=== PATIENT | female | born 1950 | race Caucasian/White ===

== ENCOUNTER 2022-04-29 14:59 | Inpatient (IN) | payer MEDICARE, SELFPAY ==
--- NOTE | ~2022-04-29 | XR_ITS ---
EXAMINATION: XR CHEST CLINICAL INFORMATION: Weight gain. COMPARISON: Chest x-ray 09/29/2014 TECHNIQUE: 2 views of the chest were obtained. FINDINGS: Small to moderate volume bilateral pleural effusions. There is mild central pulmonary vascular congestion. No pulmonary edema. Heart size is normal. Cardiac mediastinal contours normal. No focal consolidation. Pacemaker leads in right atrium and right ventricle. Multilevel degenerative spondylosis spine. XR/XR chest 2V IMPRESSION: Small to moderate bilateral pleural effusions. Mild central pulmonary vascular prominence without overt pulmonary edema.
[2022-04-29 15:14] VITALS: BP 131/64; PULSE 83; RESP 18; TEMP 36.6; O2SAT 94; BMI 38.2
--- NOTE | 2022-04-29 15:26 | ECG_ITS ---
Test Reason : sob Blood Pressure : / mmHG Vent. Rate : 084 BPM Atrial Rate : 084 BPM P-R Int : 304 ms QRS Dur : 132 ms QT Int : 414 ms P-R-T Axes : 039 103 -28 degrees QTc Int : 489 ms Ventricular-paced rhythm with Premature atrial complexes Abnormal ECG When compared with ECG of 24-JUL-2018 05:43, Ventricular-paced rhythm is now Present Referred By: Generic ED Physician Electronically Signed By:REESE FELIX
[2022-04-29 15:48] LABS: MANUAL DIFF FLAG NO
[2022-04-29 15:54] LABS: Basophils Percent Auto 0.3 % (0-2); Eosinophils Absolute Auto 0.1 X10*3/uL (0.0-0.4); Eosinophils Percent Auto 1.5 % (0-4); Hematocrit 39.8 % (37.0-47.0); Hemoglobin 13.3 g/dl (12.0-16.0); Imm Gran Abs Auto 0.02 X10*3/uL (0.00-0.03); Imm Gran Pct Auto 0.3 % (0.0-0.4); Lymphocytes Absolute Auto 1.5 X10*3/uL (1.2-4.9); Lymphocytes Percent Auto 20.3 % (20-40); Mean Corpuscular HGB Conc 33.4 g/dl (31.0-35.0); Mean Corpuscular Hemoglobin 32.2 pg (27.0-33.0); Mean Corpuscular Volume 96.4 fL (80.0-98.0); Mean Platelet Volume 11.2 fL (9.4-12.3); Monocytes Percent Auto 12.6 % (2-11); Neutrophils Absolute Auto 4.9 x10*3/uL (2.0-8.3); Platelet Count 155 X10*3/uL (160-400); Red Blood Count 4.13 X10*6/uL (4.20-5.50); Red Cell Distribution Width 12.5 % (11.0-16.0); White Blood Count 7.5 X10*3/uL (4.8-10.8)
[2022-04-29 16:05] LABS: COVID-19 Test Negative (Negative); IDNOW Serial# 16C4AD1C
--- NOTE | 2022-04-29 16:06 | ED.SOB ---
HPI - SOB/Dyspnea General Chief Complaint: Dyspnea Stated Complaint: ? CHF Time Seen by Provider: 04/29/22 15:44 Source: patient Mode of arrival: ambulatory Limitations: no limitations History of Present Illness HPI Narrative: 72-year-old female with past medical history of hypertension and edema presents for 7 days of shortness of breath on exertion, worsening over the past 3 days with a 5 lb weight gain over the past 4 days. She does have a history of edema, takes 12.5 mg of spironolactone daily, has never been diagnosed with heart failure. She did not report chest pain or pressure, palpitations, dizziness, weakness, lightheadedness, abdominal pain, abdominal distention, nausea, vomiting, fevers and chills. She denies cough, hemoptysis, and is not a smoker. MD elicited complaint: shortness of breath Onset (ago): day(s) (7) Timing: constant and progressively worsening Severity: moderate Exacerbating factors: exertion, movement and deep breaths Relieving factors: nothing Associated symptoms: denies other symptoms Treatment prior to arrival: none Related Data Home oxygen amount: none Home Medications Medication Instructions Recorded Confirmed Lactobacil.acidophilus-Bifido.animalis 1 cap PO DAILY 04/29/22 04/29/22 5 billion cell sprinkle capsule (Probiotic) cholecalciferol (vitamin D3) 25 25 mcg PO DAILY 04/29/22 04/29/22 mcg (1,000 unit) tablet metoprolol succinate 100 mg 1 tab PO DAILY 04/29/22 04/29/22 tablet,extended release 24 hr multivitamin 1 tab PO DAILY 04/29/22 04/29/22 omeprazole 40 mg capsule,delayed 1 cap PO DAILY 04/29/22 04/29/22 release spironolactone 25 mg tablet 0.5 tab PO DAILY 04/29/22 04/29/22 Allergies Allergy/AdvReac Type Severity Reaction Status Date / Time mushroom Allergy Severe ANAPHYLAXIS Verified 04/29/22 16:56 metronidazole [From FLAGYL] Allergy Mild NUMBNESS Verified 04/29/22 16:56 Penicillins [PCN] Allergy Mild RASH Verified 04/29/22 16:56 levofloxacin Allergy Unknown Unknown Verified 04/29/22 16:56 nitrofurantoin Allergy Unknown Unknown Verified 04/29/22 16:56 penicillin V Allergy Unknown Unknown Verified 04/29/22 16:56 propafenone Allergy Unknown Unknown Verified 04/29/22 16:56 Sulfa (Sulfonamide Allergy Unknown RASH Verified 04/29/22 16:56 Antibiotics) [SULFA (SULFONAMIDE ANTIBIOTICS)] ondansetron Allergy Unknown Verified 04/29/22 17:14 shellfish derived AdvReac Mild HEADACHES Verified 04/29/22 16:56 [SHELLFISH DERIVED] [place] mcr Allergy Unknown Unknown Uncoded 04/29/22 16:56 penicillin Allergy Unknown Unknown Uncoded 04/29/22 16:56 sulfa drugs Allergy Unknown Unknown Uncoded 04/29/22 16:56 Review of Systems Review of Systems: Constitutional: No Fever, No Chills, 5 lb weight gain in 4 days ENT/Mouth: No Ear Pain, No Hoarseness, No sore throat Eyes: No Eye Pain, No Swelling, No Redness, No Foreign Body Cardiovascular: No Chest Pain, positive SOB, positive bilateral lower extremity edema Respiratory: No Cough, positive Dyspnea on exertion Gastrointestinal: No Nausea, No Vomiting, No Diarrhea, No abdominal Pain Genitourinary: No Dysuria, No Hematuria Musculoskeletal: No joint pain, No Myalgias, No Joint Swelling Skin: No Skin lacerations, No rash Neuro: No Weakness, No Numbness, No Paresthesias, No Loss of Consciousness, No Dizziness, No Headache Psych: No Anxiety/Panic, No Depression Heme/Lymph: no easy bruising, no Lymphadenopathy Endocrine: No Polyuria, No Polydipsia Yes all other systems are reviewed and are negative PMFSH Past Medical History Attestation statement: The following information was validated with the patient. Source: old records reviewed Medical History (Updated 04/29/22 @ 17:47 by Román Conrad MD) GERD (gastroesophageal reflux disease) Hypertension Social History Social History Patient Tobacco Use Status: Never used Tobacco Use of substances other than those prescribed or required for medical reasons: No Advance Directives: No Advance Directives Information Provided: No Physical Exam Vital Signs: Vital Signs: Last Vital Signs Temp 97.9 F 04/29/22 15:14 Pulse 83 04/29/22 17:06 Resp 20 04/29/22 17:06 BP 129/69 04/29/22 17:06 Pulse Ox 91 L 04/29/22 17:06 O2 Del Method 04/29/22 17:06 BMI result Body Mass Index 38.2 Appearance: Alert. Oriented X3. No acute distress. Eyes: Pupils equal, round and reactive to light. ENT: Pharynx normal. Neck: Normal inspection. Neck supple. CVS: Normal heart rate and rhythm. Pulses normal. Respiratory: No respiratory distress. Faint crackles to bilateral bases otherwise clear with good air flow Abdomen: Soft and nontender. Skin: Skin warm and dry. Normal skin color. Normal skin turgor. Extremities: nonpitting bilateral lower extremity extremity edema. Gait well-balanced well coordinated Neuro: No motor deficit. No sensory deficit. Cranial nerves 2-12 intact Course Course Course Narrative: 72-year-old female presents for dyspnea on exertion, 5 lb weight gain in 4 days, and increase in edema to the bilateral lower extremities. Patient is on metoprolol for high blood pressure and spironolactone 12.5 mg for edema. Started spironolactone approximately year and half ago. No prior history of CHF, no prior echos available, no history of [place]. patient does not report chest pain or pressure on exertion just feels short of breath and fatigued easily. Labs drawn while patient was in the emergency department waiting room, CBC indicates a platelet count of 155. BUN of 19. Glucose 116, no diagnosis of diabetes in the past. Bilirubin 1.1, AST 43, troponin and BNPs are pending. 16:45 BNP 801, troponin 5.4, will start IV Lasix. Chest x-ray is pending. EKG indicates sinus rhythm with first-degree AV block with PACs, anterolateral infarct age undetermined with T-wave abnormality consider inferior ischemia. States this difficult changes with EKG from 07/24/2018. Will discuss this case with hospitalist. 17:[address] Conrad, plan of care is admit for new onset CHF. Patient verbalized understanding of and agrees with this plan. Consultations Consultation #1: Dr. Conrad Time: 17:06 MDM - SOB/Dyspnea Differential Diagnosis Differential diagnosis: Likely acute exacerbation of chronic obstructive airways disease, congestive heart failure and pneumonia Medical Records Attestation: I reviewed the patient's medical records. Lab Data Attestation: I reviewed the patient's lab results. Result diagrams: 04/29/22 15:42 04/29/22 15:42 Labs: Lab Results 04/29/22 04/29/22 04/29/22 Range/Units 15:32 15:42 15:42 WBC 7.5 (4.8-10.8) X10*3/uL RBC 4.13 L (4.20-5.50) X10*6/uL Hgb 13.3 (12.0-16.0) g/dl Hct 39.8 (37.0-47.0) % MCV 96.4 (80.0-98.0) fL MCH 32.2 (27.0-33.0) pg MCHC 33.4 (31.0-35.0) g/dl RDW 12.5 (11.0-16.0) % Plt Count 155 L (160-400) X10*3/uL MPV 11.2 (9.4-12.3) fL Immature Gran % (Auto) 0.3 (0.0-0.4) % Neut % (Auto) 65.0 (45-73) % Lymph % (Auto) 20.3 (20-40) % [place] % (Auto) 12.6 H (2-11) % Eos % (Auto) 1.5 (0-4) % Baso % (Auto) 0.3 (0-2) % Lymph # (Auto) 1.5 (1.2-4.9) X10*3/uL [place] # (Auto) 1.0 (0.1-1.2) X10*3/uL Eos # (Auto) 0.1 (0.0-0.4) X10*3/uL Baso # (Auto) 0.0 (0.0-0.2) X10*3/uL Abs Immat Gran (auto) 0.02 (0.00-0.03) X10*3/uL Absolute Neuts (auto) 4.9 (2.0-8.3) x10*3/uL Absolute Nucleated RBC 0.000 (0.0-0.012) X10*3/uL Nucleated RBC % (auto) 0.0 (0.0-0.2) /100WBC Sodium 143 (135-145) mmol/L Potassium 3.9 (3.3-5.1) mmol/L Chloride 108 (96-108) mmol/L Carbon Dioxide 23 (22-29) mmol/L Anion Gap 16 (12-20) BUN 19 H (9-16) mg/dL Creatinine 0.90 (0.5-1.4) mg/dL Estim Creat Clear Calc 58.8 Estimated GFR > 60 Random Glucose 116 H (60-115) mg/dL Calcium 9.2 (8.4-10.2) mg/dL Total Bilirubin 1.1 H (0.0-1.0) mg/dL AST 28 (5-31) U/L ALT 43 H (0-31) U/L Alkaline Phosphatase 92 (39-117) U/L Troponin I High Sens (<3.5-17.0) ng/L B-Natriuretic Peptide (<100) pg/mL Total Protein 5.9 L (6.5-8.0) g/dL Albumin 3.8 (3.5-5.0) g/dL COVID-19 (LUCIUS) Negative (Negative) COVID-19 Clin Com See Note 04/29/22 04/29/22 04/29/22 Range/Units 15:42 15:42 17:03 WBC (4.8-10.8) X10*3/uL RBC (4.20-5.50) X10*6/uL Hgb (12.0-16.0) g/dl Hct (37.0-47.0) % MCV (80.0-98.0) fL MCH (27.0-33.0) pg MCHC (31.0-35.0) g/dl RDW (11.0-16.0) % Plt Count (160-400) X10*3/uL MPV (9.4-12.3) fL Immature Gran % (Auto) (0.0-0.4) % Neut % (Auto) (45-73) % Lymph % (Auto) (20-40) % [place] % (Auto) (2-11) % Eos % (Auto) (0-4) % Baso % (Auto) (0-2) % Lymph # (Auto) (1.2-4.9) X10*3/uL [place] # (Auto) (0.1-1.2) X10*3/uL Eos # (Auto) (0.0-0.4) X10*3/uL Baso # (Auto) (0.0-0.2) X10*3/uL Abs Immat Gran (auto) (0.00-0.03) X10*3/uL Absolute Neuts (auto) (2.0-8.3) x10*3/uL Absolute Nucleated RBC (0.0-0.012) X10*3/uL Nucleated RBC % (auto) (0.0-0.2) /100WBC Sodium (135-145) mmol/L Potassium (3.3-5.1) mmol/L Chloride (96-108) mmol/L Carbon Dioxide (22-29) mmol/L Anion Gap (12-20) BUN (9-16) mg/dL Creatinine (0.5-1.4) mg/dL Estim Creat Clear Calc Estimated GFR Random Glucose (60-115) mg/dL Calcium (8.4-10.2) mg/dL Total Bilirubin (0.0-1.0) mg/dL AST (5-31) U/L ALT (0-31) U/L Alkaline Phosphatase (39-117) U/L Troponin I High Sens 5.4 5.9 (<3.5-17.0) ng/L B-Natriuretic Peptide 801 H (<100) pg/mL Total Protein (6.5-8.0) g/dL Albumin (3.5-5.0) g/dL COVID-19 (LUCIUS) (Negative) COVID-19 Clin Com Imaging Data Chest x-ray: Attestation: I personally reviewed and interpreted this imaging study as follows: Radiologist's impression: EXAMINATION: XR CHEST CLINICAL INFORMATION: Weight gain. COMPARISON: Chest x-ray 09/29/2014 TECHNIQUE: 2 views of the chest were obtained. FINDINGS: Small to moderate volume bilateral pleural effusions. There is mild central pulmonary vascular congestion. No pulmonary edema. Heart size is normal. Cardiac mediastinal contours normal. No focal consolidation. Pacemaker leads in right atrium and right ventricle. Multilevel degenerative spondylosis spine. XR/XR chest 2V IMPRESSION: Small to moderate bilateral pleural effusions. Mild central pulmonary vascular prominence without overt pulmonary edema. ECG Data Attestation: I personally reviewed and interpreted this ECG as follows: ECG interpretation date: 04/29/22 ECG interpretation time: 15:26 Prior ECG tracings: available for review Interpretation: Vent. rate 84 BPM MT interval 304 ms QRS duration 132 ms QT/QTc 414/489 ms P-R-T axes 39 103 -28 Sinus rhythm with 1st degree A-V block with Premature atrial complexes Non-specific intra-ventricular conduction block Anterolateral infarct , age undetermined T wave abnormality, consider inferior ischemia Abnormal ECG When compared with ECG of 24-JUL-2018 05:43, Significant changes have occurred
[2022-04-29 16:16] LABS: Alanine Aminotransferase 43 U/L (0-31); Albumin Level 3.8 g/dL (3.5-5.0); Alkaline Phosphatase 92 U/L (39-117); Anion Gap 16 (12-20); Aspartate Amino Transferase 28 U/L (5-31); Bilirubin Total 1.1 mg/dL (0.0-1.0); Blood Urea Nitrogen 19 mg/dL (9-16); Calcium 9.2 mg/dL (8.4-10.2); Carbon Dioxide 23 mmol/L (22-29); Chloride 108 mmol/L (96-108); Creatinine Clr Calc Pharmacy 58.8; Estimated Glomerular Filt Rate > 60; Glucose Random 116 mg/dL (60-115); Potassium 3.9 mmol/L (3.3-5.1); Sodium 143 mmol/L (135-145); Total Protein 5.9 g/dL (6.5-8.0)
[2022-04-29 16:20] LABS: Troponin-I High Sensitivity 5.4 ng/L (<3.5-17.0)
[2022-04-29 16:23] LABS: B Type Natriuretic Peptide 801 pg/mL (<100)
[2022-04-29 17:06] VITALS: BP 129/69; PULSE 83; RESP 20; O2SAT 91
[2022-04-29] MEDS: Furosemide 40 MG/4 ML VIAL IVPUSH (17:08)
--- NOTE | 2022-04-29 17:17 | PHA.MEDREC ---
Pharmacy Consult ? Medication Reconciliation Pharmacy has completed the medication reconciliation. Nurse confirmed medications
[2022-04-29 17:29] LABS: Troponin-I High Sensitivity 5.9 ng/L (<3.5-17.0)
[2022-04-29 17:39] LABS: Thyroid Stimulating Hormone 1.54 uIU/mL (0.32-4.0)
--- NOTE | 2022-04-29 17:45 | P.HPHOSP_ITS ---
History of Present Illness Date of Service: 04/29/22 Chief Complaint: Dyspnea a 72 years old lady with PMH of HTN, tachycardia post ppm, GERD who presents to the hospital with a complaint of worsening dyspnea for the the last week. The patient reports that she started noticing dyspnea over the last few weeks but get worse over the last week with associated with weight gain and having some edema in her lower extremities. She denies any chest pain, palpitation, headache, double vision, change in bowel habit, nausea or vomiting or urinary symptoms. She cannot recall any episodes of chest pain over the last few weeks or any episode of chest heaviness. In the emergency she was found to have elevated BNP with chest x-ray suggestive of fluid overload. EKG showed first-degree AV block with PACs. Nonspecific T-wave changes. Admitted for further evaluation and treatment. Review of Systems Review of Systems: No fever, chills or weakness No chest pain, palpitation Dyspnea on exertion, no cough or chest pain No abdominal pain, nausea or vomiting No urinary symptoms No any rash or wounds PMFSH Medical History (Updated 04/29/22 @ 17:47 by Román Conrad MD) GERD (gastroesophageal reflux disease) Hypertension Social History Patient Tobacco Use Status: Never used Tobacco Use of substances other than those prescribed or required for medical reasons: No Advance Directives: No Advance Directives Information Provided: No Meds Allergies Allergy/AdvReac Type Severity Reaction Status Date / Time mushroom Allergy Severe ANAPHYLAXIS Verified 04/29/22 16:56 metronidazole [From FLAGYL] Allergy Mild NUMBNESS Verified 04/29/22 16:56 Penicillins [PCN] Allergy Mild RASH Verified 04/29/22 16:56 levofloxacin Allergy Unknown Unknown Verified 04/29/22 16:56 nitrofurantoin Allergy Unknown Unknown Verified 04/29/22 16:56 penicillin V Allergy Unknown Unknown Verified 04/29/22 16:56 propafenone Allergy Unknown Unknown Verified 04/29/22 16:56 Sulfa (Sulfonamide Allergy Unknown RASH Verified 04/29/22 16:56 Antibiotics) [SULFA (SULFONAMIDE ANTIBIOTICS)] ondansetron Allergy Unknown Verified 04/29/22 17:14 shellfish derived AdvReac Mild HEADACHES Verified 04/29/22 16:56 [SHELLFISH DERIVED] [place] mcr Allergy Unknown Unknown Uncoded 04/29/22 16:56 penicillin Allergy Unknown Unknown Uncoded 04/29/22 16:56 sulfa drugs Allergy Unknown Unknown Uncoded 04/29/22 16:56 Active Medications: Current Medications Acetaminophen (Acetaminophen 325 Mg Tablet) 650 mg PO Q6H PRN PRN Reason: Pain, Mild (Pain Scale 1-3) Enoxaparin Sodium (Enoxaparin Sodium 40 Mg/0.4 Ml Syringe) 40 mg SUBCUT Q24H [facility] Furosemide (Furosemide 40 Mg/4 Ml Vial) 40 mg IVPUSH DAILY [facility]; Protocol Metoprolol Succinate (Metoprolol Succinate Er 100 Mg Tab.Er.24h) 100 mg PO DAILY [facility]; Protocol Multivitamins/Vitamin C (Multivitamin Tablet) 1 tab PO DAILY [facility] Omeprazole (Omeprazole 40 Mg Capsule.Dr) 40 mg PO DAILY@0630 [facility] Ondansetron HCl (Ondansetron Hcl 4 Mg/2 Ml Vial) 4 mg IVPUSH Q8H PRN PRN Reason: Nausea and Vomiting Sodium Chloride (0.9 % Sodium Chloride Flush 3 Ml Syringe) 3 ml IVFLUSH QSHIFT [facility] Spironolactone (Spironolactone 25 Mg Tablet) 12.5 mg PO DAILY [facility]; Protocol Vitamin D (Cholecalciferol (Vitamin D3) 25 Mcg Tablet) 25 mcg PO DAILY [facility] Home Medications Medication Instructions Recorded Confirmed Last Taken Type Lactobacil.acidophilus-Bifido.animalis 1 cap PO DAILY 04/29/22 04/29/22 Unknown History 5 billion cell sprinkle capsule (Probiotic) cholecalciferol (vitamin D3) 25 25 mcg PO DAILY 04/29/22 04/29/22 Unknown History mcg (1,000 unit) tablet metoprolol succinate 100 mg 1 tab PO DAILY 04/29/22 04/29/22 04/29/22 09:00 History tablet,extended release 24 hr multivitamin 1 tab PO DAILY 04/29/22 04/29/22 Unknown History omeprazole 40 mg capsule,delayed 1 cap PO DAILY 04/29/22 04/29/22 04/29/22 09:00 History release spironolactone 25 mg tablet 0.5 tab PO DAILY 04/29/22 04/29/22 04/29/22 09:00 History Physical Exam Vital Signs and Narrative: Vital Signs: Last Vital Signs Temp 97.9 F 04/29/22 15:14 Pulse 83 04/29/22 17:06 Resp 20 04/29/22 17:06 BP 129/69 04/29/22 17:06 Pulse Ox 91 L 04/29/22 17:06 O2 Del Method 04/29/22 17:06 BMI result Body Mass Index 38.2 Const: Other: Constitutional : Alert, oriented, not in distress Neck : Normal inspection, Supple Cardiovascular : RRR, no JVP, +1 lower extremity edema Respiratory : decreased air entry at the bases of the lungs, dullness on percussion bilateral bases, basal fine crackles, no wheezes or rhonchi Gastrointestinal: soft, lax, Normal bowel sounds, Non tender Skin : Warm, Dry Neurological : Alert & oriented x3, No focal deficit , CN 2-12 within normal Results Labs CBC and Chem 7: 04/29/22 15:42 04/29/22 15:42 Labs: Laboratory Results - last 24 hr 04/29/22 04/29/22 04/29/22 15:32 15:42 15:42 MCV 96.4 MCH 32.2 MCHC 33.4 RDW 12.5 Plt Count 155 L MPV 11.2 Immature Gran % (Auto) 0.3 Neut % (Auto) 65.0 Lymph % (Auto) 20.3 [place] % (Auto) 12.6 H Eos % (Auto) 1.5 Baso % (Auto) 0.3 Lymph # (Auto) 1.5 [place] # (Auto) 1.0 Eos # (Auto) 0.1 Baso # (Auto) 0.0 Abs Immat Gran (auto) 0.02 Absolute Neuts (auto) 4.9 Absolute Nucleated RBC 0.000 Nucleated RBC % (auto) 0.0 Anion Gap 16 Estim Creat Clear Calc 58.8 Estimated GFR > 60 Random Glucose 116 H Calcium 9.2 Total Bilirubin 1.1 H AST 28 ALT 43 H Alkaline Phosphatase 92 B-Natriuretic Peptide Total Protein 5.9 L Albumin 3.8 TSH 1.54 COVID-19 ([facility]) Negative COVID-19 Clin Com See Note 04/29/22 15:42 MCV MCH MCHC RDW Plt Count MPV Immature Gran % (Auto) Neut % (Auto) Lymph % (Auto) [place] % (Auto) Eos % (Auto) Baso % (Auto) Lymph # (Auto) [place] # (Auto) Eos # (Auto) Baso # (Auto) Abs Immat Gran (auto) Absolute Neuts (auto) Absolute Nucleated RBC Nucleated RBC % (auto) Anion Gap Estim Creat Clear Calc Estimated GFR Random Glucose Calcium Total Bilirubin AST ALT Alkaline Phosphatase B-Natriuretic Peptide 801 H Total Protein Albumin TSH COVID-19 ([facility]CIUS) COVID-19 Clin Com Imaging Radiologist's Impressions: Impressions Chest X-Ray 04/29/22 16:28 IMPRESSION: Small to moderate bilateral pleural effusions. Mild central pulmonary vascular prominence without overt pulmonary edema. Assessment and Plan (1) New onset of congestive heart failure: Status: Acute Plan a 72 years old lady with PMH of HTN, tachycardia post ppm, GERD who presents to the hospital with a complaint of worsening dyspnea for the the last week. acute congestive heart failure Unclear underlying etiology, could be coronary Nonspecific T-wave changes, no ST changes suggest ACS Get an echo Start IV Lasix Monitor intake and output Get cardiology evaluation Keep on telemetry Hypertension continue metoprolol and spironolactone GERD continue omeprazole DVT PPX Lovenox The patient will need 2. Overnight hospital stay for evaluation of acute congestive heart failure to prevent possible decompensation in to hypoxic Respiratory failure. Quality Stroke Does the patient have a stroke diagnosis?: No VTE Prior VTE?: No VTE Risk Level:: Medical - moderate - high VTE Device Contraindication: Treatment Not Indicated VTE Drug Contraindication: N/A - Med Ordered
[2022-04-29 18:04] VITALS: BP 130/61; PULSE 77; RESP 20; TEMP 36.7; O2SAT 93
--- NOTE | 2022-04-29 19:30 | MHC.CM.PN ---
IMM 04/26. HCP reviewed, completed and signed. Copies given. uploaded into [facility] and [facility] Expanse. HCP/ Jimmy Nieto ([phone]). No DME/services. Has hearing aides and pacemaker. Moderna x2, boosted x2. Lives with . Is independent. D/C plan: Home without services. to transport home. CM to follow for d/c needs.
[2022-04-29 20:04] VITALS: BP 122/59; PULSE 68; RESP 22; O2SAT 93
--- NOTE | 2022-04-29 20:07 | PC.NURSE ---
Assumed care of pt at 1999.
--- NOTE | 2022-04-29 20:14 | PC.NURSE ---
Attempt to call report to [facility]
--- NOTE | 2022-04-29 20:38 | PC.NURSE ---
Attempted to call [facility] to give report, no answer once transferred.
--- NOTE | 2022-04-29 20:52 | PC.NURSE ---
Gave report to SAWYER Grande in [facility]. Pt going to [facility] [phone].
[2022-04-29 21:40] VITALS: BP 124/67; PULSE 75; RESP 20; TEMP 37.4; O2SAT 94
[2022-04-29 22:16] VITALS: BMI 36.9
[2022-04-29] MEDS: 0.9 % Sodium Chloride Flush 3 ML SYRINGE IVFLUSH (22:25)
[2022-04-29 23:49] VITALS: BP 136/64; PULSE 78; RESP 18; TEMP 36.3; O2SAT 92
--- NOTE | 2022-04-30 01:02 | PC.NURSE ---
Telemetry SR with 1st degree AVB. Pacer appears to be inappropriately pacing-Dr Lepe notified.
--- NOTE | 2022-04-30 02:01 | PC.NURSE ---
Pt had run of 18 beats VT. Asymptomatic. Dr notified and ordered labs. Will continue to monitor.
[2022-04-30 02:47] LABS: Anion Gap 18 (12-20); Blood Urea Nitrogen 18 mg/dL (9-16); Calcium 9.3 mg/dL (8.4-10.2); Carbon Dioxide 24 mmol/L (22-29); Chloride 104 mmol/L (96-108); Creatinine Clr Calc Pharmacy 67.5; Estimated Glomerular Filt Rate > 60; Glucose Random 92 mg/dL (60-115); Magnesium 1.8 mg/dL (1.6-2.6); Potassium 3.6 mmol/L (3.3-5.1); Sodium 142 mmol/L (135-145)
[2022-04-30 03:10] VITALS: BP 123/55; PULSE 75; RESP 18; TEMP 36.5; O2SAT 93
--- NOTE | 2022-04-30 04:48 | PC.NURSE ---
Pt went into NSR for a short period of time then went back to SR w/1st degree avb. Pt sleeping comfortably. Will pass along in report in am and will continue to monitor.
[2022-04-30] MEDS: Omeprazole 40 MG CAPSULE.DR PO (05:55)
[2022-04-30 06:30] LABS: Hematocrit 38.8 % (37.0-47.0); Hemoglobin 13.2 g/dl (12.0-16.0); Mean Corpuscular Hemoglobin 32.6 pg (27.0-33.0); Mean Corpuscular Volume 95.8 fL (80.0-98.0); Mean Platelet Volume 10.9 fL (9.4-12.3); Platelet Count 155 X10*3/uL (160-400); Red Blood Count 4.05 X10*6/uL (4.20-5.50); Red Cell Distribution Width 12.2 % (11.0-16.0)
[2022-04-30 06:46] LABS: Anion Gap 17 (12-20); Blood Urea Nitrogen 19 mg/dL (9-16); Calcium 9.1 mg/dL (8.4-10.2); Carbon Dioxide 25 mmol/L (22-29); Chloride 105 mmol/L (96-108); Creatinine Clr Calc Pharmacy 70.2; Estimated Glomerular Filt Rate > 60; Glucose Random 84 mg/dL (60-115); Potassium 3.7 mmol/L (3.3-5.1); Sodium 143 mmol/L (135-145)
--- NOTE | 2022-04-30 07:00 | CA_ITS ---
Transthoracic Echocardiogram Patient (Last, First, Middle): Maria G Nieto A Gender: Female Date of : 1950 Age: 72 Procedure Date: 04/30/2022 Procedure Type: Transthoracic Echocardiogram [place] [facility] [place]: 157.48 cm Weight: 91.17 kg BSA: 1.92 m2 Heart Rate: 70 bpm BP: 123 / 55 mmHg Back Wedger: JOSE LUIS York MD: Román Conrad MD Manager Ob: Matt Pompa MD Symptoms: new onset CHF Study Quality: Adequate ECG Rhythm: Sinus with V-paced rhythm Conclusions: - 1. Low normal LV systolic function with LVEF of 50-55% with impaired relaxation filling pattern 2. [id number] mitral regurgitation 3. Normal RV systolic pressure 4. No gross pericardial effusion Findings Left Ventricle Normal left ventricular cavity size. There is normal left ventricular wall thickness. The left ventricular systolic function is low normal. The visually estimated ejection fraction is between 50-55%. There is paradoxical septal motion consistent with a right ventricular pacemaker. Spectral Doppler is indicative of an impaired relaxation filling pattern. Peak GLS is 15.6%, which is reduced. Right Ventricle Normal right ventricular cavity size. There is normal right ventricular systolic function. There is a pacemaker wire seen in the right ventricle. Atria The left atrium is likely dilated. Interatrial shunt cannot be excluded. The right atrium is normal in size. A pacemaker wire is identified in the right atrium. Aortic Valve Normal aortic valve structure and function. There is no aortic valve stenosis. There is no aortic valve regurgitation. Mitral Valve There is mild anterior and posterior mitral leaflet thickening. There is mild to moderate mitral valve regurgitation. There is no mitral valve stenosis. Pulmonic Valve The pulmonic valve is likely normal. Tricuspid Valve Likely normal tricuspid valve structure and function. There is mild tricuspid valve regurgitation. The right ventricular systolic pressure is normal. The right ventricular systolic pressure is 28 mmHg. Normal right atrial pressure. There is no evidence of pulmonary hypertension. Great Vessels All visible segments of the aorta are normal in size. The pulmonary artery was not well visualized. Venous The inferior vena cava is normal in size and collapses greater than 50% with inspiration. Pericardium/Pleural There is no evidence of pericardial effusion. Prior Study Comparison No prior study available for comparison. Measurements 2D Linear Measurements IVSd: 0.97 0.6-0.9/0.6-1.0 cm LVIDd: 4.53 3.9-5.3/4.2-5.9 cm LVIDd Index: 2.36 2.4-3.2/2.2-3.1 cm/m2 LVIDs: 3.10 2.0-3.6 cm LVPWd: 0.92 0.7-1.1 cm LA Diam: 3.70 2.7-3.8/3.0-4.0 cm LAIDs Index: 1.93 1.5-2.3 cm/m2 LV Mass: 178.39 67-162/88-224 g LV Mass Index: 92.91 43-95/49-115 g/m2 LVOT Diam: 1.90 3.0+(-)1.3 cm 2D Systolic Function EF 4C: 52.30 >55% EF 2C: 49.90 >55% EF BiP: 51.50 >55% Mitral Valve MV Pk E: 0.94 MV PK A: 0.89 MV Decel Time: 216.00 E/A: 1.10 E'Lateral: 8.16 E'Medial: 4.13 E/E' Med: 22.70 E/E' Lat: 11.50 PHT: 63.00 MVA PHT: 3.49 Decel [place]: 4.35 Aortic Valve AoV Pk Tony: 1.35 AoV Mn Tony: 0.97 AoV VTI: 0.30 AoV Pk Grad: 7.00 Aov Mn Grad: 4.00 ANTELMO Cont.VTI: 1.90 LVOT LVOT Pk Tony: 0.89 LVOT Mn Tony: 0.63 LVOT VTI: 0.20 LVOT Pk Grad: 3.00 LVOT Mn Grad: 2.00 LVOT Diam: 1.90 LVOT Area: 2.84 Diastolic Function MV Pk E: 0.94 MV Pk A: 0.89 E/A: 1.10 E'Medial: 4.13 E/E' Med: 22.70 E' Laterial: 8.16 E/E' Lat: 11.50 Right Ventricle TAPSE (mm): 20.40 TVS' Tony: 11.30 Tricuspid Valve TR Pk Tony: 2.50 TR Pk Grad: 25.00 RA Press: 3.00 RVSP: 28.00 Great Vessels Aorta Sinus of Valsalva: 2.70 2.0-3.5 cm Ao Asc: 3.30 2.1-3.4 cm Pulmonary Veins Pulm Vein S/D 0.80 Pulmonary Valve PV Pk Tony: 1.02 Peak PV Grad: 4.00 Updated in Other Vendor System with Status of Final Matt Pompa MD electronically signed on 04/30/2022 12:51:38 PM with status of Final
[2022-04-30 07:30] VITALS: BP 128/60; PULSE 72; RESP 20; TEMP 36.4; O2SAT 91
[2022-04-30] MEDS: Furosemide 40 MG/4 ML VIAL IVPUSH (07:57)
[2022-04-30] MEDS: Cholecalciferol (Vitamin D3) 25 MCG TABLET PO (07:58)
[2022-04-30] MEDS: Metoprolol Succinate ER 100 MG TAB.ER.24H PO (07:58)
[2022-04-30] MEDS: Multivitamin TABLET 1 TAB PO (07:58)
[2022-04-30] MEDS: Spironolactone 25 MG TABLET 12.5 MG PO (07:58)
[2022-04-30] MEDS: 0.9 % Sodium Chloride Flush 3 ML SYRINGE IVFLUSH ×3 (08:01→20:29)
--- NOTE | 2022-04-30 09:45 | P.CONCA_ITS ---
History of Present Illness History of Present Illness Date of Service: 04/30/22 Requesting physician: Román Conrad Consult reason: congestive heart failure Chief complaint: Dyspnea Narrative: I was consulted to see Maria G in cardiology consultation today for new onset congestive heart failure. She is a pleasant 72-year-old woman with prior history of [employer] dual-chamber pacer placement in 2013 for what she says is tachycardia which is unusual, hypertension, no history of congestive heart failure coronary artery disease or vascular event. Patient generally is doing well overall with her overall has status and says sees Dr. Daniel and his staff in [place] and has regular checks with her pacemaker every year. She had last echocardiogram 2018. She said for about a week she started getting increasing shortness of breath and over the last 2 days the shortness of breath progressed with minimal exertion and then on Friday night she got symptoms of orthopnea and could lay flat and had cough. She thought she had bronchitis. Friday she continued to get worse with her shortness of breath and on Friday morning she called her primary care physician. She also had associated sudden weight gain of about 5 lb and some lower extremity edema. She was advised to come to the emergency room and came to [facility] yesterday and was noted to be in heart failure with BNP in 800 range and chest x-ray consistent with congestive heart failure. EKG shows normal sinus rhythm with prolonged AV interval with ventricularly paced rhythm with PVCs. She said she in the past has been told that she does not utilize a pacemaker much. She did not have any ischemic symptoms of chest discomfort. She denies any recent symptoms of upper respiratory or viral illness. She denies any symptoms of palpitations, irregular heartbeat, lightheadedness, syncope. She denies any dietary indiscretion. Review of Systems Constitutional: Constitutional: Reports weight gain (Rapid in 1 day, 5 lb) Eyes: Eyes: Reports no additional eye complaints ENT: Reports system reviewed and no additional complaints, except as documented Cardiovascular: Cardiovascular: Denies chest pain, Denies chest pain with activity, Reports leg edema, Denies lightheadedness, Denies Loss of Conscious ness, Denies palpitations, Reports dyspnea on exertion and Reports orthopnea Respiratory: Respiratory: Reports cough and Reports dyspnea on exertion Gastrointestinal: Gastrointestinal: Reports no additional gastrointestinal complaints Genitourinary: Genitourinary: Reports no additional female genitourinary complaints Musculoskeletal: Musculoskeletal: Reports no additional musculoskeletal complaints Integumentary/Breasts: Skin/Breast: Reports system reviewed and no additional complaints, except as docu Neurologic: Reports system reviewed and no additional complaints, except as documented Psychiatric: Psychiatric: Reports no additional psychiatric complaints Endocrine: Endocrine: Reports no additional endocrine complaints and Denies palpitations Hematologic/Lymphatic: Hematologic/Lymphatic: Reports no additional hematologic/lymphatic complaints Allergic/Immunologic: Allergic/Immunologic: Reports no additional allergic/immunologic complaints [facility] Past Medical History Medical History Cardiac pacemaker in situ GERD (gastroesophageal reflux disease) Hypertension Social History Social History Household Members: Spouse Housing: House Do you presently have visiting nurse or other home services: No Patient Tobacco Use Status: Never used Tobacco Use of substances other than those prescribed or required for medical reasons: No Currently Displaying Signs/Symptoms of Drug Intoxication Withdrawal: No Any prior treatment program specific to substance use: No Have you been hit, kicked, punched, or otherwise hurt by someone within the past year? If so, by whom?: No Do you feel safe in your current relationship?: No Is there a partner from a previous relationship who is making you feel unsafe now?: No Are you made to feel afraid or neglected: No Advance Directives: No Advance Directives Information Provided: No Do you have thoughts of harming others: None Do you have a plan to hurt others: No Plan Recently lost weight without trying: No How much weight loss: Not applicable Eating poorly because of decreased appetite: No Nutrition screen score: 0 Nutrition Risks: No Nutritional Risk Patient : No : No Poor oral hygiene: No service: No Current occupational status: retired Meds Allergies Allergy/AdvReac Type Severity Reaction Status Date / Time mushroom Allergy Severe ANAPHYLAXIS Verified 04/29/22 16:56 metronidazole [From FLAGYL] Allergy Mild NUMBNESS Verified 04/29/22 16:56 Penicillins [PCN] Allergy Mild RASH Verified 04/29/22 16:56 levofloxacin Allergy Unknown Unknown Verified 04/29/22 16:56 nitrofurantoin Allergy Unknown Unknown Verified 04/29/22 16:56 penicillin V Allergy Unknown Unknown Verified 04/29/22 16:56 propafenone Allergy Unknown Unknown Verified 04/29/22 16:56 Sulfa (Sulfonamide Allergy Unknown RASH Verified 04/29/22 16:56 Antibiotics) [SULFA (SULFONAMIDE ANTIBIOTICS)] ondansetron Allergy Unknown Verified 04/29/22 17:14 shellfish derived AdvReac Mild HEADACHES Verified 04/29/22 16:56 [SHELLFISH DERIVED] Fin[place] mcr Allergy Unknown Unknown Uncoded 04/29/22 16:56 penicillin Allergy Unknown Unknown Uncoded 04/29/22 16:56 sulfa drugs Allergy Unknown Unknown Uncoded 04/29/22 16:56 Active Medications: Current Medications Acetaminophen (Acetaminophen 325 Mg Tablet) 650 mg PO Q6H PRN PRN Reason: Pain, Mild (Pain Scale 1-3) Enoxaparin Sodium (Enoxaparin Sodium 40 Mg/0.4 Ml Syringe) 40 mg SUBCUT Q24H [facility] Last Admin: 04/29/22 18:31 Dose: Not Given Furosemide (Furosemide 40 Mg/4 Ml Vial) 40 mg IVPUSH DAILY [facility]; Protocol Last Admin: 04/30/22 07:57 Dose: 40 mg Metoprolol Succinate (Metoprolol Succinate Er 100 Mg Tab.Er.24h) 100 mg PO DAILY [facility]; Protocol Last Admin: 04/30/22 07:58 Dose: 100 mg Multivitamins/Vitamin C (Multivitamin Tablet) 1 tab PO DAILY [facility] Last Admin: 04/30/22 07:58 Dose: 1 tab Omeprazole (Omeprazole 40 Mg Capsule.Dr) 40 mg PO DAILY@0630 [facility] Last Admin: 04/30/22 05:55 Dose: 40 mg Ondansetron HCl (Ondansetron Hcl 4 Mg/2 Ml Vial) 4 mg IVPUSH Q8H PRN PRN Reason: Nausea and Vomiting Sodium Chloride (0.9 % Sodium Chloride Flush 3 Ml Syringe) 3 ml IVFLUSH QSHIFT [facility] Last Admin: 04/30/22 08:01 Dose: 3 ml Spironolactone (Spironolactone 25 Mg Tablet) 12.5 mg PO DAILY [facility]; Protocol Last Admin: 04/30/22 07:58 Dose: 12.5 mg Vitamin D (Cholecalciferol (Vitamin D3) 25 Mcg Tablet) 25 mcg PO DAILY [facility] Last Admin: 04/30/22 07:58 Dose: 25 mcg Home Medications Medication Instructions Recorded Confirmed Last Taken Type Lactobacil.acidophilus-Bifido.animalis 1 cap PO DAILY 04/29/22 04/29/22 Unknown History 5 billion cell sprinkle capsule (Probiotic) cholecalciferol (vitamin D3) 25 25 mcg PO DAILY 04/29/22 04/29/22 Unknown History mcg (1,000 unit) tablet metoprolol succinate 100 mg 1 tab PO DAILY 04/29/22 04/29/22 04/29/22 09:00 History tablet,extended release 24 hr multivitamin 1 tab PO DAILY 04/29/22 04/29/22 Unknown History omeprazole 40 mg capsule,delayed 1 cap PO DAILY 04/29/22 04/29/22 04/29/22 09:00 History release spironolactone 25 mg tablet 0.5 tab PO DAILY 04/29/22 04/29/22 04/29/22 09:00 History Physical Exam Vital Signs: Vital Signs: Last Vital Signs Temp 97.6 F 04/30/22 07:30 Pulse 72 04/30/22 07:30 Resp 20 04/30/22 07:30 BP 128/60 04/30/22 07:30 Pulse Ox 91 L 04/30/22 07:30 O2 Del Method 04/30/22 07:30 BMI result Body Mass Index 36.9 Const: General: cooperative, no acute distress, alert, awake and Physically active Nutritional Appearance: obese Orientation/consciousness: patient oriented x3 Limitations: no limitations HEENT: Head: Yes normocephalic and Yes atraumatic Neck: Neck: Yes trachea midline, Yes supple and Yes no JVD Chest: Chest palpation & inspection: normal inspection of the chest Resp: Effort & Inspection: normal respiratory effort Auscultation: crackles bilateral at the base Cardio: Palpation: normal PMI Rate: regular rate Rhythm: regular rhythm Heart sounds: S1 normal heart sound present, S2 normal heart sound present, no click, no gallops, no murmurs and no rubs GI: Auscultation: normal bowel sounds Skin: General skin exam: no rashes or lesions noted Neuro: General: patient oriented x3 and no focal motor deficits Extrem: General: No clubbing, No cyanosis and Yes edema Objective Labs and Meds Result diagrams: 04/30/22 06:01 04/30/22 06:01 Lab results: Laboratory Results - last 24 hr 04/29/22 04/29/22 04/29/22 15:32 15:42 15:42 WBC 7.5 RBC 4.13 L Hgb 13.3 Hct 39.8 MCV 96.4 MCH 32.2 MCHC 33.4 RDW 12.5 Plt Count 155 L MPV 11.2 Immature Gran % (Auto) 0.3 Neut % (Auto) 65.0 Lymph % (Auto) 20.3 [place] % (Auto) 12.6 H Eos % (Auto) 1.5 Baso % (Auto) 0.3 Lymph # (Auto) 1.5 [place] # (Auto) 1.0 Eos # (Auto) 0.1 Baso # (Auto) 0.0 Abs Immat Gran (auto) 0.02 Absolute Neuts (auto) 4.9 Absolute Nucleated RBC 0.000 Nucleated RBC % (auto) 0.0 Sodium 143 Potassium 3.9 Chloride 108 Carbon Dioxide 23 Anion Gap 16 BUN 19 H Creatinine 0.90 Estim Creat Clear Calc 58.8 Estimated GFR > 60 Random Glucose 116 H Calcium 9.2 Magnesium Total Bilirubin 1.1 H AST 28 ALT 43 H Alkaline Phosphatase 92 Troponin I High Sens B-Natriuretic Peptide Total Protein 5.9 L Albumin 3.8 TSH 1.54 COVID-19 ([facility]) Negative COVID-19 Clin Com See Note 04/29/22 04/29/22 04/29/22 15:42 15:42 17:03 WBC RBC Hgb Hct MCV MCH MCHC RDW Plt Count MPV Immature Gran % (Auto) Neut % (Auto) Lymph % (Auto) [place] % (Auto) Eos % (Auto) Baso % (Auto) Lymph # (Auto) [place] # (Auto) Eos # (Auto) Baso # (Auto) Abs Immat Gran (auto) Absolute Neuts (auto) Absolute Nucleated RBC Nucleated RBC % (auto) Sodium Potassium Chloride Carbon Dioxide Anion Gap BUN Creatinine Estim Creat Clear Calc Estimated GFR Random Glucose Calcium Magnesium Total Bilirubin AST ALT Alkaline Phosphatase Troponin I High Sens 5.4 5.9 B-Natriuretic Peptide 801 H Total Protein Albumin TSH COVID-19 ([facility]) COVID-19 Clin Com 04/30/22 04/30/22 04/30/22 02:20 06:01 06:01 WBC 7.0 RBC 4.05 L Hgb 13.2 Hct 38.8 MCV 95.8 MCH 32.6 MCHC 34.0 RDW 12.2 Plt Count 155 L MPV 10.9 Immature Gran % (Auto) Neut % (Auto) Lymph % (Auto) [place] % (Auto) Eos % (Auto) Baso % (Auto) Lymph # (Auto) [place] # (Auto) Eos # (Auto) Baso # (Auto) Abs Immat Gran (auto) Absolute Neuts (auto) Absolute Nucleated RBC 0.000 Nucleated RBC % (auto) 0.0 Sodium 142 143 Potassium 3.6 3.7 Chloride 104 105 Carbon Dioxide 24 25 Anion Gap 18 17 BUN 18 H 19 H Creatinine 0.77 0.74 Estim Creat Clear Calc 67.5 70.2 Estimated GFR > 60 > 60 Random Glucose 92 84 Calcium 9.3 9.1 Magnesium 1.8 Total Bilirubin AST ALT Alkaline Phosphatase Troponin I High Sens B-Natriuretic Peptide Total Protein Albumin TSH COVID-19 ([facility]) COVID-19 Clin Com Imaging Radiologist's impression: Impressions Chest X-Ray 04/29/22 16:28 IMPRESSION: Small to moderate bilateral pleural effusions. Mild central pulmonary vascular prominence without overt pulmonary edema. Assessment and Plan (1) New onset of congestive heart failure: Status: Acute Patient with new onset congestive heart failure, unclear etiology at this point time. She is constantly RV pacing on the 12 lead EKG. Will evaluate for increased burden of RV pacing. Need an echocardiogram to assess for LV systolic function as well as to evaluate for valvular abnormality and pulmonary hypertension. Eventually require ischemic workup. For now continue IV diuresis with Lasix 40 mg IV push daily. Strict intake and output chart needs to be pursued. CHF education to be provided. Advised patient to ambulate today in the hallways as she is feeling a lot better compared to yesterday. Increase spironolactone to 25 mg daily. Continue to monitor renal function as well as BNP tomorrow to see if there is adequate down trend and hopefully if she is doing better by tomorrow will discharge. If she has any evidence of LV systolic dysfunction will consider adding angiotensin receptor antagonist. If she has preserved LV ejection fraction will consider adding Jardiance to her regimen. 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 We discussed about heart failure management the long run with avoidance of salt loading as well as daily weight monitoring. She shows understanding. (2) Cardiac pacemaker in situ: Status: Acute Cardiac pacemaker in-situ, working well. Will evaluate with the pacer rep to evaluate for increased burden of RV pacing as well as any arrhythmias that can be detected and adequate functioning. Will continue to follow with you. Thank you for allowing me to partake in the care Procedures Date of Service Date of Service: 04/30/22
--- NOTE | 2022-04-30 10:39 | HO.PM.IMPN ---
Subjective Subjective Date of Service: 04/30/22 Interval History: Seen and evaluated this morning Feels more comfortable, no more dyspnea Saturating early 90s on room air Pending echo No other overnight events Review of Systems No fever, chills or weakness No chest pain, palpitation Dyspnea on exertion, no cough or chest pain No abdominal pain, nausea or vomiting No urinary symptoms No any rash or wounds Physical Exam Vital Signs: Vital Signs: Last Vital Signs Temp 97.6 F 04/30/22 07:30 Pulse 72 04/30/22 07:30 Resp 20 04/30/22 07:30 BP 128/60 04/30/22 07:30 Pulse Ox 91 L 04/30/22 07:30 O2 Del Method 04/30/22 07:30 BMI result Body Mass Index 36.9 Const: Other: Constitutional : Alert, oriented, not in distress Neck : Normal inspection, Supple Cardiovascular : RRR, no JVP, trace bilateral lower extremity edema Respiratory : decreased air entry at the bases of the lungs, dullness on percussion bilateral bases, basal fine crackles, no wheezes or rhonchi Gastrointestinal: soft, lax, Normal bowel sounds, Non tender Skin : Warm, Dry Neurological : Alert & oriented x3, No focal deficit , CN 2-12 within normal Objective Data Active Medications Acetaminophen (Acetaminophen 325 Mg Tablet) 650 mg PO Q6H PRN PRN Reason: Pain, Mild (Pain Scale 1-3) Enoxaparin Sodium (Enoxaparin Sodium 40 Mg/0.4 Ml Syringe) 40 mg SUBCUT Q24H [facility] Last Admin: 04/29/22 18:31 Dose: Not Given Documented By: MARY Non-Admin Reason: Patient Refused Furosemide (Furosemide 40 Mg/4 Ml Vial) 40 mg IVPUSH DAILY [facility]; Protocol Last Admin: 04/30/22 07:57 Dose: 40 mg Documented By: LINK Metoprolol Succinate (Metoprolol Succinate Er 100 Mg Tab.Er.24h) 100 mg PO DAILY [facility]; Protocol Last Admin: 04/30/22 07:58 Dose: 100 mg Documented By: LINK Multivitamins/Vitamin C (Multivitamin Tablet) 1 tab PO DAILY [facility] Last Admin: 04/30/22 07:58 Dose: 1 tab Documented By: LINK Omeprazole (Omeprazole 40 Mg Capsule.Dr) 40 mg PO DAILY@0630 [facility] Last Admin: 04/30/22 05:55 Dose: 40 mg Documented By: LETY Ondansetron HCl (Ondansetron Hcl 4 Mg/2 Ml Vial) 4 mg IVPUSH Q8H PRN PRN Reason: Nausea and Vomiting Sodium Chloride (0.9 % Sodium Chloride Flush 3 Ml Syringe) 3 ml IVFLUSH QSHIFT [facility] Last Admin: 04/30/22 08:01 Dose: 3 ml Documented By: LINK Spironolactone (Spironolactone 25 Mg Tablet) 12.5 mg PO DAILY [facility]; Protocol Last Admin: 04/30/22 07:58 Dose: 12.5 mg Documented By: LINK Vitamin D (Cholecalciferol (Vitamin D3) 25 Mcg Tablet) 25 mcg PO DAILY [facility] Last Admin: 04/30/22 07:58 Dose: 25 mcg Documented By: LINK Labs CBC & Chem 7: 04/30/22 06:01 04/30/22 06:01 Labs: Laboratory Results - last 24 hr 04/29/22 04/29/22 04/29/22 15:32 15:42 15:42 MCV 96.4 MCH 32.2 MCHC 33.4 RDW 12.5 Plt Count 155 L MPV 11.2 Immature Gran % (Auto) 0.3 Neut % (Auto) 65.0 Lymph % (Auto) 20.3 [place] % (Auto) 12.6 H Eos % (Auto) 1.5 Baso % (Auto) 0.3 Lymph # (Auto) 1.5 [place] # (Auto) 1.0 Eos # (Auto) 0.1 Baso # (Auto) 0.0 Abs Immat Gran (auto) 0.02 Absolute Neuts (auto) 4.9 Absolute Nucleated RBC 0.000 Nucleated RBC % (auto) 0.0 Anion Gap 16 Estim Creat Clear Calc 58.8 Estimated GFR > 60 Random Glucose 116 H Calcium 9.2 Magnesium Total Bilirubin 1.1 H AST 28 ALT 43 H Alkaline Phosphatase 92 B-Natriuretic Peptide Total Protein 5.9 L Albumin 3.8 TSH 1.54 COVID-19 ([facility]) Negative COVID-19 Clin Com See Note 04/29/22 04/30/22 04/30/22 15:42 02:20 06:01 MCV 95.8 MCH 32.6 MCHC 34.0 RDW 12.2 Plt Count 155 L MPV 10.9 Immature Gran % (Auto) Neut % (Auto) Lymph % (Auto) [place] % (Auto) Eos % (Auto) Baso % (Auto) Lymph # (Auto) [place] # (Auto) Eos # (Auto) Baso # (Auto) Abs Immat Gran (auto) Absolute Neuts (auto) Absolute Nucleated RBC 0.000 Nucleated RBC % (auto) 0.0 Anion Gap 18 Estim Creat Clear Calc 67.5 Estimated GFR > 60 Random Glucose 92 Calcium 9.3 Magnesium 1.8 Total Bilirubin AST ALT Alkaline Phosphatase B-Natriuretic Peptide 801 H Total Protein Albumin TSH COVID-19 ([facility]) COVID-19 Clin Com 04/30/22 06:01 MCV MCH MCHC RDW Plt Count MPV Immature Gran % (Auto) Neut % (Auto) Lymph % (Auto) [place] % (Auto) Eos % (Auto) Baso % (Auto) Lymph # (Auto) [place] # (Auto) Eos # (Auto) Baso # (Auto) Abs Immat Gran (auto) Absolute Neuts (auto) Absolute Nucleated RBC Nucleated RBC % (auto) Anion Gap 17 Estim Creat Clear Calc 70.2 Estimated GFR > 60 Random Glucose 84 Calcium 9.1 Magnesium Total Bilirubin AST ALT Alkaline Phosphatase B-Natriuretic Peptide Total Protein Albumin TSH COVID-19 ([facility]) COVID-19 Clin Com Assessment and Plan (1) New onset of congestive heart failure: Status: Acute Plan a 72 years old lady with PMH of HTN, tachycardia post ppm, GERD who presents to the hospital with a complaint of worsening dyspnea for the the last week. acute congestive heart failure Unclear underlying etiology, could be coronary Nonspecific T-wave changes, no ST changes suggest ACS Pending echo Continue IV Lasix Increase spironolactone to 25 Monitor intake and output Cardiology input appreciated, evaluate pacer, increase spironolactone Keep on telemetry Follow BMP Hypertension continue metoprolol and spironolactone GERD continue omeprazole DVT PPX Lovenox The patient will need Overnight hospital stay for evaluation of acute congestive heart failure to prevent possible decompensation in to hypoxic Respiratory failure. Quality Stroke Does the patient have a stroke diagnosis?: No VTE Prior VTE?: No VTE Risk Level:: Medical - moderate - high VTE Device Contraindication: Treatment Not Indicated VTE Drug Contraindication: N/A - Med Ordered
[2022-04-30 11:57] VITALS: BP 112/59; PULSE 71; RESP 20; TEMP 36.2; O2SAT 92
--- NOTE | 2022-04-30 12:15 | P.CDIC_ITS ---
CDI Concurrent Query Documentation Clarification: PHYSICIAN'S DOCUMENTATION REQUEST Date of Query: 04/30/22 1215 Patient Name: Maria G Nieto Admit Date: 04/29/22 Dear Doctor, A review of the medical record indicates additional documentation may be needed. Please review below and update the documentation accordingly. Clinical Indicators: Risk Factors/Clinical Indicators/Treatments Nursing notes Height and Weight - BMI 36.9 5' 2 in height. Obesity class II. If possible, please provide an associated diagnosis related to the abnormal BMI, such as: For a BMI >= 35: * Overweight * Obesity * Due to excess calories * Drug induced * Due to other cause Use of terms such as suspected, likely, concern for, or probable (associated with a specific diagnosis that is being evaluated, monitored, or treated as if it exists) are acceptable and can be coded in the inpatient setting, when documented at the time of discharge. Thank you, Jayde Eckert [facility], CDIS Extension: [phone] Please use your independent medical judgment in providing your response. THIS QUERY IS PART OF THE PERMANENT MEDICAL RECORD Provider Response: Obesity
[2022-04-30 15:22] VITALS: BP 114/57; PULSE 71; RESP 20; TEMP 37.2; O2SAT 93
[2022-04-30 20:00] VITALS: BP 135/65; PULSE 81; RESP 18; TEMP 36.3; O2SAT 95
[2022-04-30 23:49] VITALS: BP 117/56; PULSE 80; RESP 18; TEMP 36.5; O2SAT 95
[2022-05-01 04:00] VITALS: BP 127/62; PULSE 80; RESP 18; TEMP 36.2; O2SAT 94
[2022-05-01] MEDS: Omeprazole 40 MG CAPSULE.DR PO (05:34)
[2022-05-01 06:46] LABS: B Type Natriuretic Peptide 93 pg/mL (<100)
[2022-05-01 06:54] LABS: Anion Gap 17 (12-20); Blood Urea Nitrogen 22 mg/dL (9-16); Calcium 9.3 mg/dL (8.4-10.2); Carbon Dioxide 25 mmol/L (22-29); Chloride 103 mmol/L (96-108); Creatinine Clr Calc Pharmacy 64.9; Estimated Glomerular Filt Rate > 60; Glucose Random 93 mg/dL (60-115); Potassium 3.7 mmol/L (3.3-5.1); Sodium 141 mmol/L (135-145)
[2022-05-01 07:48] VITALS: BP 132/59; PULSE 70; RESP 18; TEMP 36.6; O2SAT 95
[2022-05-01] MEDS: Multivitamin TABLET 1 TAB PO (08:33)
[2022-05-01] MEDS: Metoprolol Succinate ER 100 MG TAB.ER.24H PO (08:33)
[2022-05-01] MEDS: Acetaminophen 325 MG TABLET 650 MG PO (08:33)
[2022-05-01] MEDS: Cholecalciferol (Vitamin D3) 25 MCG TABLET PO (08:33)
[2022-05-01] MEDS: 0.9 % Sodium Chloride Flush 3 ML SYRINGE IVFLUSH (08:34)
[2022-05-01] MEDS: Furosemide 40 MG/4 ML VIAL IVPUSH (08:34)
[2022-05-01] MEDS: Spironolactone 25 MG TABLET PO (08:34)
--- NOTE | 2022-05-01 10:00 | P.PNCA_ITS ---
Subjective Subjective Date of Service: 05/01/22 <DARIUS Maldonado - Last Filed: 05/01/22 10:29> 05/01/22 <Matt Pompa MD - Last Filed: 05/01/22 12:03> Principal diagnosis: new CHF <DARIUS Maldonado - Last Filed: 05/01/22 10:29> Interval history: Seen at 0915. Today she reports that breathing is back to normal. She feels ready for discharge. slept wrong on neck and has some right sided neck discomfort that is worsened by movement. No chest pains, palpitations, dizziness, PND, orthopnea or edema. Ambulating steady in room and hallways. Tele showing V paced rhythm. <DARIUS Maldonado - Last Filed: 05/01/22 10:29> Review of Systems Review of Systems as above <DARIUS Maldonado - Last Filed: 05/01/22 10:29> Yes all other systems are reviewed and are negative <DARIUS Maldonado - Last Filed: 05/01/22 10:29> Physical Exam Vital Signs: Last Vital Signs Temp 97.8 F 05/01/22 07:48 Pulse 70 05/01/22 07:48 Resp 18 05/01/22 07:48 BP 132/59 L 05/01/22 07:48 Pulse Ox 95 05/01/22 07:48 O2 Del Method 05/01/22 07:48 BMI result Body Mass Index 36.9 <DARIUS Maldonado - Last Filed: 05/01/22 10:29> Const General: cooperative, healthy appearing, no acute distress, alert and awake <DARIUS Maldonado - Last Filed: 05/01/22 10:29> Orientation/consciousness: patient oriented x3 <DARIUS Maldonado Last Filed: 05/01/22 10:29> Neck Neck: Yes normal visual inspection <DARIUS Maldonado Last Filed: 05/01/22 10:29> Resp Effort & Inspection: normal respiratory effort, able to speak in complete sentences and not labored <DARIUS Maldonado - Last Filed: 05/01/22 10:29> Auscultation: clear to auscultation bilaterally, no rhonchi and no wheezes <FRANKLYN MaldonadoC - Last Filed: 05/01/22 10:29> Cardio Other: small amount rales noted right base <FRANKLYN MaldonadoC - Last Filed: 05/01/22 10:29> Palpation: normal PMI <FRANKLYN MaldonadoC - Last Filed: 05/01/22 10:29> Rate: regular rate <FRANKLYN MladonadoC - Last Filed: 05/01/22 10:29> Rhythm: regular rhythm <Esperanza Farmer NP-C - Last Filed: 05/01/22 10:29> Heart sounds: S1 normal heart sound present and S2 normal heart sound present <FRANKLYN MaldonadoC - Last Filed: 05/01/22 10:29> GI Inspection: Yes normal to inspection <FRANKLYN Maldonado - Last Filed: 05/01/22 10:29> Skin General skin exam: no rashes or lesions noted <FRANKLYN MaldonadoC - Last Filed: 05/01/22 10:29> Neuro General: patient oriented x3 <FRANKLYN Maldonado - Last Filed: 05/01/22 10:29> Extrem General: Yes normal to inspection and No edema <Esperanza Farmer NP-C - Last Filed: 05/01/22 10:29> Objective Labs and Meds Result diagrams: : 04/30/22 06:01 05/01/22 05:55 <Esperanza Farmer FRANKLYN - Last Filed: 05/01/22 10:29> Lab results: Laboratory Results - last 24 hr 05/01/22 05/01/22 05:55 05:55 Sodium 141 Potassium 3.7 Chloride 103 Carbon Dioxide 25 Anion Gap 17 BUN 22 H Creatinine 0.80 Estim Creat Clear Calc 64.9 Estimated GFR > 60 Random Glucose 93 Calcium 9.3 B-Natriuretic Peptide 93 <Esperanza Farmer NP-C - Last Filed: 05/01/22 10:29> Progress Note: A&P Assessment and plan (1) New onset of congestive heart failure: Status: Acute <DARIUS Maldonado - Last Filed: 05/01/22 10:29> Assessment and Plan: Admit with new onset CHF. Reported increasing sob, orthopnea and Wt gain 5 lb. BNP initially 801. CXR with small to mod bilateral pleural effusions, mild central pulmonary venous prominence. EKG had shown V paced rhythm. Troponins normal. Echocardiogram shows EF 50-55%, mild to mod MR, normal RV. She has been diuresed with IV lasix and Aldactone dose increased. Clinical condition improved and breathing now back to baseline normal. Sat 95% on RA. BNP 93 this am. Cr 0.8, K 3.7. [place] [employer] PPM interrogation done yesterday shows CONTROL AND RECOVERY COMBAT RESCUE 99%. Prior notes, from [facility], indicate CONTROL AND RECOVERY COMBAT RESCUE in 27%. The increase burden of V pacing is the most likely cause of her new onset CHF. She follows with Dr Daniel for cardiology. She will need outpt ischemic evaluation. Also has had NSVT on tele monitor. Notes indicate prior NSVT and eval for sarcoidosis with PET scan in 2014 and 2018 which were negative. With her increase in V pacing and NSVT, recommend reeval for sarcoidosis with PET scan. Unable to have MRI with her PPM. Can be discharged from a cardiology perspective. Will change IV Lasix to po Lasix 20mg daily. Continue Aldactone 25mg daily. Will add Jardiance 10mg daily. HF diagnosis, signs and symptoms reviewed with her. Instructed on low salt diet and need to follow with her counter server in next 1-2 weeks. <DARIUS Maldonado - Last Filed: 05/01/22 10:29> Admit with new onset CHF. Reported increasing sob, orthopnea and Wt gain 5 lb. BNP initially 801. CXR with small to mod bilateral pleural effusions, mild central pulmonary venous prominence. EKG had shown V paced rhythm. Troponins normal. Echocardiogram shows EF 50-55%, mild to mod MR, normal RV. She has been diuresed with IV lasix and Aldactone dose increased. Clinical condition improved and breathing now back to baseline normal. Sat 95% on RA. BNP 93 this am. Cr 0.8, K 3.7. [place] [employer] PPM interrogation done yesterday shows CONTROL AND RECOVERY COMBAT RESCUE 99%. Prior notes, from [facility], indicate CONTROL AND RECOVERY COMBAT RESCUE in 27%. The increase burden of V pacing is the most likely cause of her new onset CHF. She follows with Dr Daniel for cardiology. She will need outpt ischemic evaluation. Also has had NSVT on tele monitor. Notes indicate prior NSVT and eval for sarcoidosis with PET scan in 2014 and 2018 which were negative. With her increase in V pacing and NSVT, recommend reeval for sarcoidosis with PET scan. Unable to have MRI with her PPM. Can be discharged from a cardiology perspective. Will change IV Lasix to po Lasix 20mg daily. Continue Aldactone 25mg daily. Will add Jardiance 10mg daily. HF diagnosis, signs and symptoms reviewed with her. Instructed on low salt diet and need to follow with her counter server in next 1-2 weeks. Patient seen and examined. Case discussed with Esperanza Farmer. Echocardiogram noted LVEF of 50-55% with RV pacing 99% time which is significantly increased compared to her usual RV pacing as noted in outpatient noted 27%. Possible reason for her heart failure. However she has improved significantly. Will change to p.o. Lasix 20 mg daily along with continued Aldac tone at 25 mg daily and add Jardiance 10 mg daily. Heart failure diagnosis were discussed. Daily weight monitoring and avoidance of salt loading with additional diuretics as needed was discussed. Will need ischemic workup as outpatient. Also noted nonsustained VT and with prior history of AV block and now heart failure need to rule out sarcoidosis. Consider PET scan. This will be pursued as outpatient. Continue metoprolol therapy for nonsustained VT at this point time. Continue monitor LV ejection fraction with as persistent decrease in LV ejection fraction may require upgrade to Bi V pacing. Patient can be discharged home and follow up with her own counter server in 1-2 weeks. <Matt Pompa MD - Last Filed: 05/01/22 12:03> (2) Cardiac pacemaker in situ: Status: Acute <DARIUS Maldonado - Last Filed: 05/01/22 10:29> Assessment and Plan: [place] scientific dual chamber PPM. CONTROL AND RECOVERY COMBAT RESCUE 99% currently <FRANKLYN Maldonado - Last Filed: 05/01/22 10:29> (3) NSVT (nonsustained ventricular tachycardia): Status: Acute <DARIUS Maldonado - Last Filed: 05/01/22 10:29> Assessment and Plan: Asymptomatic brief NSVT recording on Tele and PPM interrogation, occurring 04/30/22, 0133 am. 14 beats. Continues Metoprolol xl. Labs reviewed. Med changes as above. <DARIUS Maldonado - Last Filed: 05/01/22 10:29> Time Spent With Patient Time: Total time spent is greater than 50% in coordination of care (as docume nted) at patient's floor/unit and/or counseling patient: 22 <DARIUS Maldonado - Last Filed: 05/01/22 10:29> Progress Note: Quality Stroke Does the patient have a stroke diagnosis?: No <DARIUS Maldonado - Last Filed: 05/01/22 10:29> Procedures Date of Service Date of Service: 05/01/22 <DARIUS Maldonado - Last Filed: 05/01/22 10:29>
[2022-05-01 11:15] VITALS: BP 115/60; PULSE 76; RESP 20; TEMP 36.8; O2SAT 92
--- NOTE | 2022-05-01 11:33 | MHC.CM.PN ---
per no skilled servceis ordered by
--- NOTE | 2022-05-01 11:37 | PM.DS ---
DS: Providers Provider Date of Service: 05/01/22 Date of admission: 04/29/22 17:38 Primary care physician: Satnam Schmitt MD Consults: 04/29/22 17:37 Consult to Cardiology Routine Consulting Provider: Matt Pompa Reason for consultation: New onset heart failure DS: Diagnosis Discharge Diagnosis (1) New onset of congestive heart failure: Status: Acute (2) Cardiac pacemaker in situ: Status: Acute (3) NSVT (nonsustained ventricular tachycardia): Status: Acute DS: Summary Hospital Course Hospital Course: Admission note HPI ?a 72 years old lady with PMH of HTN, tachycardia post? ppm, GERD who presents to the hospital with a complaint of worsening dyspnea for the the last week.? The patient reports that she started noticing dyspnea over the last few weeks but get worse over the last week with associated with weight gain and having some edema in her lower extremities.? She denies any chest pain, palpitation, headache, double vision, change in bowel habit, nausea or vomiting or urinary symptoms.? She cannot recall any episodes of chest pain over the last few weeks or any? episode of chest heaviness. ?In the emergency she was found to have elevated BNP with chest x-ray suggestive of fluid overload. EKG showed first-degree AV block with PACs.? Nonspecific T-wave changes. Admitted for further evaluation and treatment. Hospital course The patient was admitted for evaluation of difficulty breathing. Chest x-ray was consistent with fluid overload and pleural effusion with elevated BNP. Treated as new onset congestive heart failure with IV Lasix with good response over the course of hospital stay as she became able to ambulate on room air with no reported dyspnea. Evaluated by Cardiology team as an echo showed mildly red used ejection fraction with no wall motion abnormalities. Pacemaker interrogation was done and showing 99% of paced rhythm versus 27% earlier this year which might be the reason behind her worsening cardiac function. Cardiology recommended outpatient evaluation and possible upgrading her pacemaker. Increase spironolactone to 25 mg daily, start Lasix 20 mg at time of discharge and Jardiance to decrease cardiovascular risk. Start Lasix 20 mg daily Increase spironolactone to 25 mg daily Start Jardiance 10 mg daily To follow up with Cardiology as outpatient for further evaluation and recommendations Time Spent with Patient Time attestation: Total time spent providing and/or coordinating discharge services: Discharge coordination time: Greater than 30 minutes Quality: Safe Use of Opioids Does Pt have an Active Cancer Diagnosis on the Problem List?: No Quality: Stroke Does the patient have a stroke diagnosis?: No Physical Exam Vital Signs: Vital Signs: Last Vital Signs Temp 98.2 F 05/01/22 11:15 Pulse 76 05/01/22 11:15 Resp 20 05/01/22 11:15 BP 115/60 05/01/22 11:15 Pulse Ox 92 05/01/22 11:15 O2 Del Method 05/01/22 11:15 BMI result Body Mass Index 36.9 Const: Other: Constitutional : Alert, oriented, not in distress Neck : Normal inspection, Supple Cardiovascular : RRR, no JVP, trace bilateral lower extremity edema Respiratory : Improved air entry at the bases of the lungs, no crackles, no wheezes or rhonchi Gastrointestinal: soft, lax, Normal bowel sounds, Non tender Skin : Warm, Dry Neurological : Alert & oriented x3, No focal deficit , CN 2-12 within normal DS: Data Data Completed and Pending Labs on day of discharge: Laboratory Results - last 24 hr 05/01/22 05/01/22 05:55 05:55 Sodium 141 Potassium 3.7 Chloride 103 Carbon Dioxide 25 Anion Gap 17 BUN 22 H Creatinine 0.80 Estim Creat Clear Calc 64.9 Estimated GFR > 60 Random Glucose 93 Calcium 9.3 B-Natriuretic Peptide 93 Imaging Chest x-ray: Radiologist's impression: ITS Impressions Chest X-Ray 04/29/22 16:28 IMPRESSION: Small to moderate bilateral pleural effusions. Mild central pulmonary vascular prominence without overt pulmonary edema. Discharge Plan Discharge Patient Disposition: Home, Self-Care Discharge Diagnosis: New onset congestive heart failure Referrals: Satnam Schmitt MD [Primary Care Provider] - 1 Week Discharge Medications: New furosemide 20 mg Tablet 20 mg PO DAILY 30 Days Qty: 30 0RF Protocol: Hold for SBP< HOLD for SBP < : 90 Jardiance 10 mg Tablet 10 mg PO DAILY Qty: 30 0RF Continued metoprolol succinate 100 mg tablet extended release 24 hr 1 tab PO DAILY omeprazole 40 mg capsule,delayed release(DR/EC) 1 cap PO DAILY multivitamin Tablet 1 tab PO DAILY cholecalciferol (vitamin D3) 25 mcg (1,000 unit) Tablet 25 mcg PO DAILY Probiotic 5 billion cell Capsule, Sprinkle 1 cap PO DAILY Changed spironolactone 25 mg tablet 1 tab PO DAILY Qty: 30 0RF Discharge Orders: Discharge Order (Routine); Ordered 05/01/22 Ordered By: Román Conrad Diet: Low salt diet Activity on Discharge: As tolerated Stand Alone Forms: Patient Portal Discharge page Care Plan Goals: Read below Health Concerns: Read below Plan of Treatment: Read below Assessment: You were admitted to the hospital for evaluation of difficulty breathing. Found to have fluid overload as a result of new onset heart failure. Evaluated by Cardiology team as you were treated with IV Lasix with good response over the course of hospital stay as your shortness of breath resolved. An echo was done showing mildly reduced function of your heart. Interrogation if your pacemaker was done showing 99% paced rhythm. Start Lasix 20 mg daily Increase spironolactone to 25 mg daily Start Jardiance 10 mg daily To follow up with Cardiology as outpatient for further evaluation and recommendations
== END 2022-05-01 13:00 | disposition home or self-care (01) | DRG 291 ==
LOC: HO.ED 17:52 → HO.EDOVER 18:04 → HO.IMC 20:17
PROVIDERS: Hospitalist; Nurse Practitioner Family; Admitting Provider Student in an Organized Health Care Education/Training Program; Emergency Provider Emergency Medicine; PCP Internal Medicine; Visit Provider Student in an Organized Health Care Education/Training Program
DX: I11.0 Hypertensive heart disease with heart failure (principal); I50.21 Acute systolic (congestive) heart failure; I47.1 Supraventricular tachycardia; K21.9 Gastro-esophageal reflux disease without esophagitis; E66.9 Obesity, unspecified; I34.0 Nonrheumatic mitral (valve) insufficiency; Z68.36 Body mass index [BMI] 36.0-36.9, adult; Z20.822 Contact with and (suspected) exposure to COVID-19; Z95.0 Presence of cardiac pacemaker; Z91.013 Allergy to seafood; Z88.0 Allergy status to penicillin; Z88.2 Allergy status to sulfonamides; Z88.8 Allergy status to other drugs, medicaments and biological substances; Z79.899 Other long term (current) drug therapy
CPT/HCPCS: 36415; 71046; 80048; 80053; 83735; 83880; 84443; 84484; 85025; 85027; 87635; 93005; 93306; 93356; 99285; J1940; Q9957